=== PATIENT | female | born 1960 | race Hispanic/Latino ===

== ENCOUNTER → 2025-05-25 | Emergency (ER) | payer MEDICARE ==
[~2025-05-25] VITALS: Ht 165.1 cm; Wt 54.4 kg
[~2025-05-25] MED LIST: MECL-302 PO
--- NOTE | 2025-05-25 01:35 | NUR ---
UA CUP PROVIDED
[2025-05-25] MEDS: 0.9%NACL 1000ML 1,000 ML IV STA (02:10)
--- NOTE | 2025-05-25 02:12 | EKG ---
[facility] Test Date: 2025-05-25 Test Time: 02:07:42 Pat Name: ESME CORONA Department: ED Room: Gender: F Rn Camp: [id number] : 1960 Requested By: GRACIELA HUTCHINSON Order Number: [id number] Reading MD: Tay Liang Measurements Intervals [place] Rate: 67 P: 74 MN: 160 QRS: -46 QRSD: 106 T: 21 QT: 423 QTc: 448 Interpretive Statements Sinus rhythm Probable left atrial enlargement Incomplete RBBB and LAFB Anteroseptal infarct, age indeterminate No previous ECG available for comparison Electronically Signed On 05-25-2025 13:40:30 CDT by Tay Liang Please click the below link to view image of tracing.
[2025-05-25 02:16] LABS: IMMATURE GRANULOCYTE ABSOLUTE 0.02 K/uL (0-1); NUCLEATED RED BLOOD CELLS 0.0 % (0.0-0.19); PLATELET COUNT (AUTO) 286 K/uL (130-400); RED BLOOD CELL COUNT(AUTO) 4.27 MIL/uL (4.00-5.50); RED CELL DISTRIBUTION WIDTH 13.0 % (11.0-15.5); WHITE BLOOD COUNT (AUTO) 6.6 K/uL (4.8-10.8)
[2025-05-25 02:20] LABS: APPEARANCE,URINE CLEAR (CLEAR); GLUCOSE, URINE (UA) NEGATIVE (NEGATIVE); LEUKOCYTE ESTERASE ,URINE NEGATIVE Leu/uL (NEGATIVE); NITRATE,URINE NEGATIVE (NEGATIVE); OCCULT BLOOD,URINE NEGATIVE (NEGATIVE)
[2025-05-25 02:21] LABS: ADD UA MICROSCOPIC NO
[2025-05-25 02:23] LABS: CREATININE 0.7 mg/dL (0.5-1.0); GLOMERULAR FILTR. RATE CALC 97.0 mL/min (>90); GLUCOSE,RANDOM 90.0 mg/dL (70-105); SODIUM SERUM 139.0 mmol/L (136-145); UREA NITROGEN, BLOOD 11.0 mg/dL (7-18)
--- NOTE | 2025-05-25 02:41 | ERN ---
ED Note History of Present Illness Stated Complaint: DIZZINESS HEADACHE Chief Complaint: Multiple Complaints Time Seen by MD: 01:35 Time Seen by Midlevel: 01:38 Dictation: 64 year old female with a history of hypertension coming in with complaints of o ccipital headache and dizziness. Patient states also she takes medication for blood pressure but today she forgot to take it in the morning she usually does and to get until 4:00 a.m. in the afternoon. Patient also states she just landed from a cruise at about 8:00 a.m. this morning then [place] from [place]. Also states two days ago while in the cruise she got a massage that they massage her neck and back of her head. Patient states she feels dizzy even when she closes her eyes. Denies any unsteady gait, numbness, unilateral weakness or tingling. No slurred speech. No facial droop. NIH 0 in triage. Allergies: Coded Allergies: No Known Allergies (Unverified Allergy, Unknown, 05/25/25) Past Medical History Past Medical History: Hypertension Surgical History: Hysterectomy, Other, Surgical History Other: BREAST IMPLANTS Review of System Dictation Constitutional: Negative for fever,chills, and weight loss Eyes: Negative for injury, pain,redness, and discharge ENT: Negative for injury,pain or swelling Cardiovascular: Negative for chest pain, palpitations, and edema Respiratory: Negative for shortness of breath, cough, and wheezing, Abdomen/GI: Negative for abdominal pain, nausea, vomiting, diarrhea, and constipation Back: Negative for injury and pain : Negative for injury, bleeding and discharge MS/Extremity: Negative for injury and deformity Skin: Negative for rash, and discoloration Neuro: Negative for headache, weakness, numbness, tingling, and seizure , complaining of dizziness Psych: Negative for suicide ideation, homicidal ideation, and hallucinations Review of Systems: was completed Initial Vital Sign VS Vital Signs Date Time Temp Pulse Resp B/P (MAP) Pulse Ox O2 Delivery O2 Flow Rate FiO2 05/25/25 01:34 97.7 77 18 165/87 98 Room Air 05/25/25 02:15 0 21 Physical Exam Dictation General: awake, alert, NAD Head/Face: Normocephalic, atraumatic Eyes: PERRL, EOMI, vision at baseline ENT: oral cavity clear, TMs clear, no signs of infection Neck: Trachea midline, supple, no nuchal rigidity Cardiovascular: RRR, normal S1/S2, No MRGs, no JVD Respiratory: CTAB, no respiratory distress, No rales or wheezes Abdomen: Soft, non-tender, non-distended, normal bowel sounds, no guarding or rebound. Skin: Warm, dry, normal turgor, no rash MS/Extremity: Pulses equal, no cyanosis, neurovascular intact, FROM Neuro: COAx4, GCS 15, strength 5/5, CN 2-12 intact, normal cerebellar exam, normal gait, Psych: Normal behavior, mood, and affect normal Results (Laboratory/Radiology) Laboratory/Radiology Laboratory Tests Test 05/25/25 02:05 05/25/25 02:10 White Blood Count 6.6 K/uL (4.8-10.8) Red Blood Count 4.27 MIL/uL (4.00-5.50) Hemoglobin 12.8 g/dL (12.0-16.0) Hematocrit 38.7 % (36-48) Mean Corpuscular Volume 90.6 fL (79-99) Mean Corpuscular Hemoglobin 30.0 pg (27.0-33.0) Mean Corpuscular Hemoglobin Concent 33.1 g/dL (32.0-36.0) Red Cell Distribution Width 13.0 % (11.0-15.5) Platelet Count 286 K/uL (130-400) Mean Platelet Volume 9.4 fL (7.5-10.5) Immature Granulocyte % (Auto) 0.3 % (0-1) Neutrophils (%) (Auto) 62.6 % (40.0-77.0) Lymphocytes (%) (Auto) 25.2 % (21.0-51.0) Monocytes (%) (Auto) 9.1 % (3.0-13.0) Eosinophils (%) (Auto) 2.0 % (0.0-8.0) Basophils (%) (Auto) 0.8 % (0.0-5.0) Neutrophils # (Auto) 4.2 K/uL (1.8-7.7) Lymphocytes # (Auto) 1.7 K/uL (1.0-4.8) Monocytes # (Auto) 0.6 K/uL (0.1-1.0) Eosinophils # (Auto) 0.13 K/uL (0.00-0.70) Basophils # (Auto) 0.05 K/uL (0.00-0.20) Absolute Immature Granulocyte (auto 0.02 K/uL (0-1) Nucleated Red Blood Cells 0.0 % (0.0-0.19) Sodium Level 139 mmol/L (136-145) Potassium Level 3.5 mmol/L (3.5-5.1) Chloride Level 102 mmol/L (101-111) Carbon Dioxide Level 32 mmol/L (21-32) Blood Urea Nitrogen 11 mg/dL (7-18) Creatinine 0.7 mg/dL (0.5-1.0) Glomerular Filtration Rate Calc 97 mL/min (>90) Random Glucose 90 mg/dL (70-105) Total Calcium 8.2 mg/dL (8.5-10.1) L Troponin I High Sensitivity 6 ng/L (4-50) Urine Color LIGHT-YELLOW (YELLOW) Urine Appearance CLEAR (CLEAR) Urine pH 6.5 (5.0-8.0) Urine Specific [place] 1.021 (1.001-1.031) Urine Protein NEGATIVE mg/dL (NEGATIVE) Urine Glucose (UA) NEGATIVE mg/dL (NEGATIVE) Urine Ketones NEGATIVE mg/dL (NEGATIVE) Urine Occult Blood NEGATIVE (NEGATIVE) Urine Nitrate NEGATIVE (NEGATIVE) Urine Bilirubin NEGATIVE mg/dL (NEGATIVE) Urine Urobilinogen 0.2 mg/dL (0.2-1.0) Urine Leukocyte Esterase NEGATIVE Maria Dolores/uL Labs Reviewed?: Yes ED Course ED Course Orders Procedure Category Date Status Time Cbc With Differential LAB 05/25/25 Complete 01:49 Basic Metabolic Panel LAB 05/25/25 Complete 01:49 Urinalysis Profile LAB 05/25/25 Complete 01:49 Troponin I High LAB 05/25/25 Complete Sensitivity 01:49 12 Lead Ekg Tracing- EKG 05/25/25 Complete Technical 01:49 0.9%Nacl 1000ml (Ns PHA 05/25/25 Complete 1000ml) 01:49 Meclizine Hcl 25 Mg PHA 05/25/25 Complete (Antivert 25 Mg) 01:49 Methylprednisolone PHA 05/25/25 Complete Succ 125mg (Solu-Medr 01:53 Current Medications Medications (Trade) Dose Ordered Sig/Gabo Route PRN Reason Start Time Stop Time Status Last Admin Dose Admin Meclizine HCl (ANTIvert 25 mg) 25 mg ONCE STAT PO 05/25/25 01:49 05/25/25 01:58 DC 05/25/25 02:09 Methylprednisolone Sodium Succinate (Solu-medROL 125MG) 125 mg ONCE STAT IVP 05/25/25 01:53 05/25/25 01:58 DC 05/25/25 02:09 Sodium Chloride 1,000 ml @ 1,000 mls/hr Q1H STAT IV 05/25/25 01:49 05/25/25 02:48 DC 05/25/25 02:10 Vital Signs Date Time Temp Pulse Resp B/P (MAP) Pulse Ox O2 Delivery O2 Flow Rate FiO2 05/25/25 02:15 65 1 168/90 99 Room Air* 0 21 05/25/25 01:34 97.7 77 18 165/87 98 Room Air Medical Decision Making MDM MDM: 64 year old female with a history of hypertension coming in with complaints of occipital headache and dizziness. Patient states also she takes medication for blood pressure but today she forgot to take it in the morning she usually does and to get until 4:00 a.m. in the afternoon. Patient also states she just landed from a cruise at about 8:00 a.m. this morning then drove from [place]. Also states two days ago while in the cruise she got a massage that they massage her neck and back of her head. Patient states she feels dizzy even when she closes her eyes. Denies any unsteady gait, numbness, unilateral weakness or tingling. No slurred speech. No facial droop. NIH 0 in triage. ER MD, went at bedside and assess patient. Concluded it patient does not eat a CT scan at this time as there are no abnormal neurological findings. Blood work is unremarkable. Troponin negative. EKGs shows no arrhythmia or ST elevations. Fluids, meclizine given in the ER. Patient states she is feels slightly better however going to her blood pressure is in the 180s. We will give hydralazine to control her blood pressure. 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 Discussed with the patient she needs to follow up after the ER visit with her PCP as she might need further medication or change in dosage for her cu rrent medications. Educated to return to the hospital if she has any worsening symptoms. Patient verbalized understanding, answered all questions. Differential diagnosis: Dizziness, dehydration, vertigo, ACS Rationale: Tests considered and ordered secondary to shared decision making include: Previous outside records reviewed: Old ER visits. Risk of complication and/or morbidity or mortality of patient management: None Medications-Per medication reconciliation Need for hospitalization: Patient does not meet criteria for hospitalization. Need for emergency major/minor surgery: No There are no social concerns with this patient. Prescription drug management Prescriptions will include symptomatic care Patient's prior external medical records from other ER visits were reviewed by me as indicated. Prior testing and results from previous visits were reviewed. Prior tests were taken into account with medical decision making and resource utilization, independent historian/historians were used to obtain complete medical history. I independently interpreted the test that were performed, results were reviewed by me and considered findings on radiology if ordered. Medical management and examination interpretation discussions were had by me with other qualified healthcare professionals as indicated for the patient's care. DX & DISP Disposition: Discharge Departure Impression: Primary Impression: Hypertensive urgency Additional Impressions: Dizziness, Mal de debarquement Condition: Stable Scripts Meclizine HCl (Meclizine HCl) 25 Mg Tablet 25 MG PO TID for vertigo for 15 Days, #45 TAB 0 Refills Prov: GRACIELA HUTCHINSON NP 05/25/25 Additional Instructions: Any medication as needed. Take your home medications as prescribed. Follow up with your primary care provider you might need additional medication or changing your dosage for your blood pressure medications. Return to the hospital if you have any worsening symptoms. Time of Disposition: 02:58 I have reviewed the case, and I agree with, Diagnosis and Plan GRACIELA HUTCHINSON NP May 25, 2025 02:41
[2025-05-25 03:41] VITALS: BP 151/63; PULSE 86; RESP 18; TEMP 98.5; O2SAT 98
== END ==
LOC: EDH 01:33
DX: I16.0 Hypertensive urgency (principal); R42 Dizziness and giddiness; I10 Essential (primary) hypertension; Z90.710 Acquired absence of both cervix and uterus; Z98.82 Breast implant status
CPT/HCPCS: 99284; 96374; 96375; 84484; 80048; 85025; 81003; 36415; 93005; J2919; J7030; J0360